=== PATIENT | male | born 1985 | race Caucasian/White ===

== ENCOUNTER 2021-09-05 19:52 | Emergency (ER) | payer OTHER ==
[2021-09-05 20:01] VITALS: BP 123/86; PULSE 88; TEMP 98.7; BMI 43.4
== END 2021-09-05 21:19 | disposition home or self-care (01) ==
LOC: JERFT 19:52
DX: L05.01 Pilonidal cyst with abscess (principal)
CPT/HCPCS: 99283-25

== ENCOUNTER 2021-09-09 17:51 | Emergency (ER) | payer OTHER ==
[2021-09-09 17:56] VITALS: BP 129/79; PULSE 76; TEMP 98; BMI 40.7
[2021-09-09] MEDS ORDERED: LIDOCAINE HCL 1%, 10 MG/ML (20ML VIAL) ONE (18:33)
[2021-09-09] MEDS ORDERED: LIDOCAINE HCL 1%, 10 MG/ML (50 mL VIAL) SQ ONE (18:52)
== END 2021-09-09 18:58 | disposition home or self-care (01) ==
LOC: JERFT 17:51
PROC: 0H98XZZ Drainage of Buttock Skin, External Approach (ICD-10-PCS; principal; 2021-09-09)
DX: L05.01 Pilonidal cyst with abscess (principal)
CPT/HCPCS: 87070; 87205; 99283-25

== ENCOUNTER 2024-01-16 14:42 | Emergency (ER) | payer OTHER ==
[2024-01-16 14:52] VITALS: BP 120/75; PULSE 86; RESP 16; TEMP 97.8; BMI 38.4
[2024-01-16] MEDS ORDERED: FLUORESCEIN NA 1 EA STRIP ONE (15:19)
[2024-01-16] MEDS ORDERED: TETRACAINE 0.5% OPHTH SOLN 2 ML BOTTLE ONE (15:19)
[2024-01-16] MEDS: FLUORESCEIN NA 1 EA STRIP OD ONE (15:28)
[2024-01-16] MEDS: TETRACAINE 0.5% HCL 0.6ML DROPPER.BOTTLE OD ONE (15:28)
[2024-01-16] MEDS ORDERED: ERYTHROMYCIN 0.5% OPHTHALMIC OINTMENT 3.5 GM TUBE ONE (15:30)
[2024-01-16] MEDS ORDERED: IBUPROFEN 600 MG TABLET (FP) PO ONE (15:30)
[2024-01-16] MEDS: ERYTHROMYCIN 0.5% OPHTHALMIC OINTMENT 3.5 GM TUBE OD SCH (15:33)
[2024-01-16] MEDS: IBUPROFEN 600 MG TABLET (FP) PO ONE (15:34)
== END 2024-01-16 15:49 | disposition home or self-care (01) ==
LOC: JERFT 14:42
DX: S05.01XA Injury of conjunctiva and corneal abrasion without foreign body, right eye, initial encounter (principal); W22.8XXA Striking against or struck by other objects, initial encounter
CPT/HCPCS: 99283-25

== ENCOUNTER 2024-12-30 08:23 | Emergency (ER) | payer OTHER ==
[2024-12-30 08:36] VITALS: RESP 20; BMI 39.8
[2024-12-30 09:48] LABS: THROAT:GRP A STREP NOT DETECTED (NOTDETECTED)
[2024-12-30] MEDS ORDERED: ACETAMINOPHEN INJECTION 100 ML ONE (09:50)
[2024-12-30] MEDS: SODIUM CHLORIDE 0.9% 500 ML INFUS.BAG IV ONE (10:01)
[2024-12-30] MEDS: ACETAMINOPHEN 1000 MG/100 ML BAG IVPB ONE (10:01)
[2024-12-30 10:04] LABS: BASO % 0.2 % (0-2.0); EOS % 0.2 % (0-4.5); HEMATOCRIT 44.8 % (35.4-49); HEMOGLOBIN 15.6 GM/dL (11.7-16.9); MCH 28.6 pg (25.7-33.7); MCHC 34.9 g/dl (32.0-35.9); MEAN PLT VOLUME 8.5 fl (7.5-11.1); MONO % 18.3 % (3.8-10.2); NEUT % 65.3 % (42.8-82.8); PLATELET COUNT 176 10^3/uL (134-434); RBC 5.47 M/mm3 (4.00-5.60); RDW 12.7 % (11.9-15.9); WHITE BLOOD COUNT 4.9 K/mm3 (4.0-10.0)
[2024-12-30 10:16] LABS: CALCIUM 8.7 mg/dL (8.5-10.1)
[2024-12-30 10:17] LABS: BLOOD UREA NITROGEN 10.2 mg/dL (7-18)
[2024-12-30 10:20] LABS: CREATININE 0.7 mg/dL (0.55-1.3)
[2024-12-30 10:22] LABS: TOT PROT 7.7 g/dl (6.4-8.2)
[2024-12-30 10:36] VITALS: BP 124/71; PULSE 110
[2024-12-30] MEDS ORDERED: IBUPROFEN 600 MG TABLET (FP) PO ONE (10:38)
[2024-12-30] MEDS: IBUPROFEN 600 MG TABLET (FP) PO ONE (10:39)
[2024-12-30 11:35] VITALS: TEMP 99.1
[2024-12-30 12:16] LABS: HIV INTERPRETATION NEGATIVE (NEGATIVE)
== END 2024-12-30 12:03 | disposition home or self-care (01) ==
LOC: JER 08:23
PROC: 3E033NZ Introduction of Analgesics, Hypnotics, Sedatives into Peripheral Vein, Percutaneous Approach (ICD-10-PCS; principal; 2024-12-30)
DX: J10.1 Influenza due to other identified influenza virus with other respiratory manifestations (principal); M79.10 Myalgia, unspecified site; R05.9 Cough, unspecified; R00.0 Tachycardia, unspecified; R50.9 Fever, unspecified; Z20.822 Contact with and (suspected) exposure to COVID-19
CPT/HCPCS: 0241U-QW; 36415; 71046-TC-FY; 80053; 82962; 85025; 86803; 87389; 87651; 99284-25; J0131